=== PATIENT | male | born 1975 | race Caucasian/White ===

== ENCOUNTER 2020-03-09 07:01 | Outpatient (NON) | payer BC, SELFPAY ==
[2020-03-09 22:28] LABS: SARS-CoV-2 RNA PCR Negative
== END 2020-03-09 07:02 ==
LOC: ANHCOVIDDT 07:01
PROVIDERS: Visit Provider Family Medicine
DX: Z20.822 Contact with and (suspected) exposure to COVID-19 (principal); R53.83 Other fatigue; R51.9 Headache, unspecified
CPT/HCPCS: C9803; U0003; U0005

== ENCOUNTER → 2020-03-30 07:14 | Outpatient (CLI) | payer BC, SELFPAY ==
[2020-03-30 22:49] LABS: SARS-CoV-2 RNA PCR Negative
== END ==
PROVIDERS: PCP Family Medicine; Visit Provider Family Medicine
DX: Z20.822 Contact with and (suspected) exposure to COVID-19 (principal); R05 Cough; R50.9 Fever, unspecified
CPT/HCPCS: C9803; U0003; U0005

== ENCOUNTER → 2021-04-09 08:17 | Outpatient (CLI) | payer BC, SELFPAY ==
[2021-04-09 16:39] LABS: SARS-CoV-2 RNA PCR Negative
== END ==
PROVIDERS: PCP Family Medicine; Visit Provider Family Medicine
DX: R09.81 Nasal congestion (principal); Z20.822 Contact with and (suspected) exposure to COVID-19
CPT/HCPCS: C9803; U0003; U0005